=== PATIENT | female | born 1995 | race Native Hawaiian/Other Pacific Islander ===

== ENCOUNTER 2022-04-01 12:18 | Emergency (ER) | payer OTHER ==
[~2022-04-01] VITALS: Ht 172.7 cm; Wt 117.9 kg
[2022-04-01 12:27] VITALS: BP 150/74; TEMP 98
== END 2022-04-01 12:55 | disposition home or self-care (01) ==
LOC: ED 12:18
DX: Z20.2 Contact with and (suspected) exposure to infections with a predominantly sexual mode of transmission (principal); F17.210 Nicotine dependence, cigarettes, uncomplicated
CPT/HCPCS: 99281